=== PATIENT | female | born 1950 | race Caucasian/White ===

== ENCOUNTER → 2016-11-04 | Outpatient (CLI) | payer OTHER ==
--- NOTE | 2016-11-04 18:50 | US ---
Ultrasound Pelvis, Transvaginal HISTORY: Pelvic pain. FINDINGS: The uterus measures 5.3 x 2.8 x 3.3 cm. There is a calcified mass at the fundus, measurin g 8 mm, which is echogenic and has shadowing compatible with a calcified leiomyoma. The endometrial stripe is within normal limits at 3 mm. The right ovary measures 2.0 x 1.0 x 1.0 cm, and the left ov jeremi measures 1.9 x 1.0 x 1.1 cm. Both ovaries are normal in appearance and demonstrate normal blood flow. No significant free fluid in the pelvis. IMPRESSION: Small calcified leiomyoma at the fundus of the uterus. Otherwise unremarkable.
== END ==
LOC: FIMAGING 13:57
PROVIDERS: ATTEND Internal Medicine
DX: D25.9 Leiomyoma of uterus, unspecified (principal)

== ENCOUNTER → 2016-11-06 | Outpatient (CLI) | payer OTHER ==
--- NOTE | 2016-11-06 17:12 | MA ---
Screening Digital Mammogram Clinical Indications: Routine screening. Mother with breast cancer at age 46. Technique: Standard cephalocaudal and mediolateral oblique projections are obtained. An additional c c view was performed of the right breast. This examination is processed by the [employer] computer aided de tection system. Comparison: November 2013, and September 2012 Breast density: B; There are scattered fibroglandular densities. Findings: CAD was reviewed. No suspicious findings are identified. Impression: Negative mammogram. . BI-RADS 1. Recommendation: Routine screening is recommended in one year. [facility] will send a result letter to the patient. Negative mammography should not preclude additional workup of a clinically suspicious finding. The patient's information is entered into a reminder system with a target due date for her next mammo gram.
== END ==
LOC: FIMAGING 14:05
DX: Z12.31 Encounter for screening mammogram for malignant neoplasm of breast (principal); Z80.3 Family history of malignant neoplasm of breast
CPT/HCPCS: G0202

== ENCOUNTER → 2018-11-03 | Outpatient (CLI) | payer OTHER | LOC: FIMAGING 09:10 | PROVIDERS: ATTEND Internal Medicine | DX: Z12.31 Encounter for screening mammogram for malignant neoplasm of breast (principal); Z80.3 Family history of malignant neoplasm of breast ==

== ENCOUNTER → 2019-02-18 | Outpatient (CLI) | payer OTHER, MEDICARE | LOC: BHLMT 08:30 | PROVIDERS: ATTEND Internal Medicine Cardiovascular Disease | DX: R94.31 Abnormal electrocardiogram [ECG] [EKG] (principal) | CPT/HCPCS: 78452; 93017; A9500; J2785 ==